=== PATIENT | male | born 1990 | race Caucasian/White ===

== ENCOUNTER 2019-10-20 13:44 | Emergency (ER) | payer MEDICAID ==
[~2019-10-20] VITALS: Ht 177.8 cm; Wt 72.6 kg
[2019-10-20 14:02] VITALS: BP 182/114
--- NOTE | 2019-10-20 14:15 | NUR ---
pt ambulated to bed 6.
--- NOTE | 2019-10-20 14:24 | NUR ---
ranjith blunt at bedside evaluating pt
--- NOTE | 2019-10-20 14:34 | NUR ---
C/O RIGHT ARM PAIN, BRUISE & SWELLING S/P SURGERY 10/10/19. RIGHT UPPER CHEST DIALYSIS AREA. ANURIA 3 YEARS.PT AOX4 , AFIBRILE , AMBULATORY WITH STEADY GAIT. PINK PALPEBRAL CONJUNCTIVA , ANICTERIC SCLERA .RT ARM PAIN AT 10/10 MED HX: ESRD WITH HEMODIALYSIS ON M, W,F, HTN
[2019-10-20] MEDS ORDERED: MORPHINE SULFATE 4 MG/ML SYR IM ONE (14:35)
--- NOTE | 2019-10-20 15:40 | NUR ---
us at bedside.
--- NOTE | 2019-10-20 16:05 | NUR ---
dr agudelo informed pt c/o pain 01/18 .
[2019-10-20 16:31] VITALS: BP 186/109
--- NOTE | 2019-10-20 16:32 | NUR ---
Patient discharged with v/s stable. Written and verbal after care instructions given and explained regarding av fistula care. Patient alert, oriented and verbalized understanding of instructions. Ambulatory with steady gait. All questions addressed prior to discharge. ID band removed. Patient advised to follow up with PMD. Rx of norco given. Patient educated on indication of medication including possible reaction and side effects. Opportunity to ask questions provided and answered.
== END 2019-10-20 16:32 | disposition home or self-care (01) ==
LOC: MED 13:44
DX: M79.601 Pain in right arm (principal); I10 Essential (primary) hypertension; N19 Unspecified kidney failure; Z98.890 Other specified postprocedural states
CPT/HCPCS: 93971; 96372; 99284; J2270; Q0092

== ENCOUNTER 2020-03-12 10:45 | Emergency (ER) | payer MEDICAID ==
[~2020-03-12] VITALS: Ht 177.8 cm; Wt 77.1 kg
[2020-03-12 10:54] VITALS: BP 150/78
--- NOTE | 2020-03-12 11:00 | NUR ---
PT C/O FEVER 102 AT [facility]IS [facility] THIS MORNING AND MILD BODY ACHES. ORAL TEMP 99.1 UPON TRIAGE. DENIES N/V/D, SOB, CHEST PAIN, COUGH, OR FATIGUE. HEMODIALYSIS CATHETER IS IN PLACE ON THE RIGHT SUPRACLAVICULAR AREA. DIALYSIS M/W/F PMH: HTN, ESRD
--- NOTE | 2020-03-12 11:56 | NUR ---
GIOVANNA SWAB COLLECTED AND SENT TO THE TENT.
[2020-03-12] MEDS ORDERED: ACETAMINOPHEN 325 MG TAB PO ONE (12:10)
--- NOTE | 2020-03-12 12:24 | NUR ---
Covid Nancy +-- critical value received from lab. Dr Ramírez made aware
[2020-03-12 12:29] LABS: BASOPHILS % (AUTO) 0.9 % (0.0-2.0); EOSINOPHILS % (AUTO) 0.5 % (0.0-4.0); HEMATOCRIT 33.5 % (36-52); HEMOGLOBIN 11.1 g/dL (12.0-18.0); LYMPHOCYTES # (AUTO) 0.5 K/uL (2.0-11.5); MEAN CORPUSCULAR HEMOGLOBIN 29 pg (27-31); MEAN CORPUSCULAR HGB CONC 33 g/dL (33-37); MEAN CORPUSCULAR VOLUME 87.3 fL (80-94); MONOCYTES # (AUTO) 0.5 K/uL (0.8-1.0); MONOCYTES % (AUTO) 14.7 % (1.7-9.3); NEUTROPHILS # (AUTO) 2.3 K/uL (1.8-7.7); NEUTROPHILS % (AUTO) 68.9 % (42.2-75.2); PLATELET COUNT (AUTO) 192 K/uL (140-450); RED BLOOD CELL COUNT(AUTO) 3.84 MIL/uL (4.20-6.10); RED CELL DISTRIBUTION WIDTH 13.6 % (11.6-13.7); WHITE BLOOD COUNT (AUTO) 3.3 K/uL (4.8-10.8)
[2020-03-12 13:29] LABS: ALBUMIN 3.5 g/dL (3.4-5.0); ANION GAP 20.7 (8-16); CARBON DIOXIDE 24.8 mmol/L (21-32); POTASSIUM 4.5 mmol/L (3.5-5.1); TOTAL BILIRUBIN 0.3 mg/dL (0.0-1.0)
[2020-03-12 13:35] LABS: CREATININE 13.5 mg/dL (0.6-1.3)
[2020-03-12 14:10] VITALS: BP 125/71
--- NOTE | 2020-03-12 14:10 | NUR ---
Patient discharged with v/s stable. Written and verbal after care instructions given and explained. Patient verbalized understanding. Ambulatory with steady gait. All questions addressed prior to discharge. Advised to follow up with PMD.
== END 2020-03-12 14:10 | disposition home or self-care (01) ==
LOC: MED 10:45
DX: U07.1 COVID-19 (principal); I10 Essential (primary) hypertension; N28.9 Disorder of kidney and ureter, unspecified
CPT/HCPCS: 36415; 71045; 80053; 83605; 85025; 87040; 99284

== ENCOUNTER 2021-05-03 16:59 | Emergency (ER) | payer MEDICAID ==
[~2021-05-03] VITALS: Ht 177.8 cm; Wt 77.1 kg
[2021-05-03 17:29] VITALS: BP 186/114
[2021-05-03] MEDS ORDERED: ACETAMINOPHEN EXTRA STRENGTH 500 MG TAB PO ONE (17:35)
[2021-05-03] MEDS ORDERED: FLUORESCEIN OPTH STRIP 1 MG OP ONE (17:35)
[2021-05-03] MEDS ORDERED: TETRACAINE HCL/PF 0.5% OPTH 4 ML BTL OP ONE (17:35)
[2021-05-03] MEDS ORDERED: ACET-8386 PO ×2 (17:55→18:05)
[2021-05-03] MEDS ORDERED: ERYT5OIN58 OP ×2 (17:55→18:05)
[2021-05-03 18:19] VITALS: BP 186/114
--- NOTE | 2021-05-03 18:19 | NUR ---
Patient discharged with v/s stable. Written and verbal after care instructions given and explained. Patient alert, oriented and verbalized understanding of instructions. Ambulatory with steady gait. All questions addressed prior to discharge. ID band removed. Patient advised to follow up with PMD. Rx of HYDROCODONE/ACETAMINOPHEN AND ERYTHROMYCIN given. Patient educated on indication of medication including possible reaction and side effects. Opportunity to ask questions provided and answered.
== END 2021-05-03 18:19 | disposition home or self-care (01) ==
LOC: MED 16:59
DX: S05.01XA Injury of conjunctiva and corneal abrasion without foreign body, right eye, initial encounter (principal); H00.012 Hordeolum externum right lower eyelid; I12.0 Hypertensive chronic kidney disease with stage 5 chronic kidney disease or end stage renal disease; N18.6 End stage renal disease; X58.XXXA Exposure to other specified factors, initial encounter; Y93.89 Activity, other specified; Y92.89 Other specified places as the place of occurrence of the external cause; Y99.8 Other external cause status
CPT/HCPCS: 99284